=== PATIENT | male | born 1970 | race American Indian/Alaskan Native ===

== ENCOUNTER 2019-10-23 07:07 | Emergency (ER) | payer SELFPAY ==
--- NOTE | 2019-10-23 08:12 | XRay Report ---
RIGHT KNEE HISTORY: Strain and pain. COMPARISON: None. TECHNIQUE: 3 views of the right knee obtained. FINDINGS: Bones: No fracture or dislocation. Joint spaces: The medial and lateral joint spaces are maintained. A medial osteophyte. Narrowing of t he patellofemoral joint. Soft tissues: No significant abnormality. Additional findings: A large quadriceps insertion enthesophyte. Mild opacification of the suprapatell ar bursa. IMPRESSION: 1. Osteoarthritis of the medial knee joint and patellofemoral joint. 2. Small knee joint effusion. 3. Quadriceps enthesopathy. Signer Name: Bo Ivey MD Signed: 10/23/2019 8:07 AM Workstation Name: [id number]
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
[2019-10-23 09:16] VITALS: BP 140/96
== END 2019-10-23 09:10 | disposition home or self-care (01) ==
LOC: ED 07:07
DX: M19.90 Unspecified osteoarthritis, unspecified site (principal); M25.461 Effusion, right knee
CPT/HCPCS: 99283

== ENCOUNTER 2020-07-16 15:49 | Emergency (ER) | payer OTHER ==
[2020-07-16 15:58] VITALS: BP 130/79
[2020-07-16] MEDS ORDERED: DIPHtheria,PERTUSSIS(ACELL),TETANUS VACCINE/PF 0.5 ML VIAL IM ONE (16:00)
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
== END 2020-07-16 16:25 | disposition home or self-care (01) ==
LOC: ED 15:49
DX: S21.151A Open bite of right front wall of thorax without penetration into thoracic cavity, initial encounter (principal); Z79.2 Long term (current) use of antibiotics; W50.3XXA Accidental bite by another person, initial encounter; Y93.89 Activity, other specified; Y92.89 Other specified places as the place of occurrence of the external cause; Y99.8 Other external cause status
CPT/HCPCS: 90471; 90715; 99281